=== PATIENT | female | born 1955 | race African-American/Black ===

== ENCOUNTER → 2017-05-29 | Outpatient (CLI) | payer OTHER ==
--- NOTE | 2017-05-29 11:54 | RAD ---
DATE: 05/29/2017 EXAM: DIGITAL SCREEN BILAT W/CAD HISTORY: Routine screening COMPARISON: 10/20/2015 This study was interpreted with the benefit of Computerized Aided Detection (CAD). The breast parenchyma is primarily fatty replaced. Breast parenchyma level density A. FINDINGS: There is an unchanged small nodule located just medial to the midline of the left breast. No new or enlarging breast densities are seen. Benign type calcifications are present. No suspicious microcalcifications have developed. IMPRESSION: Stable mammograms without evidence of malignancy. BI-RADS CATEGORY: 2 BENIGN FINDING(S) RECOMMENDED FOLLOW-UP: 12M 12 MONTH FOLLOW-UP PQRS compliance statement: Patient information was entered into a reminder system with a target due date for the next mammogram. Mammography is a sensitive method for finding small breast cancers, but it does not detect them all and is not a substitute for careful clinical examination. A negative mammogram does not negate a clinically suspicious finding and should not result in delay in biopsying a clinically suspicious abnormality. "Our facility is accredited by the [employer] Mammography Program."
== END | disposition home or self-care (01) ==
LOC: MAMMO 10:46
PROVIDERS: ATTEND Physician Assistant
DX: Z12.31 Encounter for screening mammogram for malignant neoplasm of breast (principal)
CPT/HCPCS: 77067

== ENCOUNTER → 2018-01-09 | Outpatient (CLI) | payer OTHER ==
[~2018-01-09] MED LIST: IOHEXOL 300 MG/ML 50 ML VIAL. IV ONE; IOHEXOL 300 MG/ML 75 ML VIAL. IV ONE
--- NOTE | 2018-01-09 11:42 | RAD ---
CT ANGIOGRAPHY CHEST Indication: SHORT OF BREATH, ELEVATED D-DIMER
75MLS OMNI 300 IV CONTRAST . Comparison: No comparison is available. Technique: After intravenous contrast administration, CT imaging was performed of the chest. MIP reconstructions were obtained. Exposure: One or more of the following individualized dose reduction techniques were utilized for this examination: 1. Automated exposure control 2. Adjustment of the mA and/or kV according to patient size 3. Use of iterative reconstruction technique. FINDINGS: Note there is limited detail due to artifact produced by body habitus. Pulmonary arteries:No evidence of pulmonary embolism. Thoracic aorta: No aneurysm or dissection is identified. Thyroid gland:Visualized aspect is unremarkable. Lymph nodes:No significant enlargement Heart: Mildly enlarged Esophagus: Unremarkable Pleural spaces: No significant effusion Lungs: Mild linear opacity in the lingula of the left lung, likely atelectasis. No dense airspace consolidation. Mild subpleural biapical opacities. No evidence of a discrete dominant mass. Trachea and central airways: Patent Bones: Degenerative thoracic spondylosis. Upper abdomen: Slices through the upper abdomen are limited due to the technique .No obvious acute findings. IMPRESSION: 1. No evidence of a pulmonary embolism. 2. There are irregular opacities identified in both lungs. This most likely due to atelectasis, or infectious/inflammatory etiology. Electronically signed by: Vishnu Escobar MD (01/09/2018 11:38 AM) [facility]
== END | disposition home or self-care (01) ==
LOC: CT 09:31
PROVIDERS: ATTEND Physician Assistant
DX: M47.894 Other spondylosis, thoracic region (principal); I51.7 Cardiomegaly; R91.8 Other nonspecific abnormal finding of lung field
CPT/HCPCS: 71275

== ENCOUNTER → 2018-05-07 | Outpatient (CLI) | payer OTHER ==
--- NOTE | 2018-05-07 15:09 | RAD ---
EXAM: Left knee, 2 views. HISTORY: Pain and swelling. COMPARISON: None. FINDINGS: 2 views left knee are obtained. There is medial compartment joint space narrowing with subchondral sclerosis. There is mild tricompartmental spurring. There is no joint effusion. There is slight enthesopathy along the superior patella. IMPRESSION: 1. Mild to moderate medial compartment and mild lateral and patellofemoral compartment osteoarthritis of the left knee. 2. No acute osseous finding. Electronically signed by: Maria Del Carmen Beverly MD (05/07/2018 3:06 PM) [facility]
--- NOTE | 2018-05-07 16:49 | RAD ---
Left lower extremity venous Doppler ultrasound History: LT KNEE PAIN AND SWELLING Comparison: None. Procedure: Color flow Doppler, Doppler spectral analysis, and 2D images are obtained with and without compression in the area of the common femoral vein, superficial femoral vein - femoral vein junction, main femoral vein (superficial femoral vein) and popliteal vein. Veins of the proximal calf are also imaged. Findings: There is normal color flow, augmentation, and compressibility of all visualized deep vein segments. No evidence of deep venous thrombus is present. Due to patient body habitus, calf veins are not well seen. IMPRESSION: No evidence of left lower extremity deep venous thrombosis. Electronically signed by: Fernando Rowe MD (05/07/2018 4:46 PM) [id number]
== END | disposition home or self-care (01) ==
LOC: RAD 14:36
PROVIDERS: ATTEND Physician Assistant
DX: M17.12 Unilateral primary osteoarthritis, left knee (principal); R22.42 Localized swelling, mass and lump, left lower limb
CPT/HCPCS: 73560; 73562; 93971

== ENCOUNTER → 2018-07-23 | Outpatient (CLI) | payer OTHER ==
--- NOTE | 2018-07-23 11:38 | RAD ---
Chest, 2 views, 07/23/2018: HISTORY: Shortness of breath, pleuritic pain The heart is at the upper limits of normal in size. There is mild tortuosity of the thoracic aorta. No pulmonary infiltrate is seen. There is no evidence of pleural fluid. There are mild scattered spurs in the spine. IMPRESSION: 1. Mild cardiomegaly. 2. No acute infiltrates. Electronically signed by: Maverick Grayson MD (07/23/2018 11:35 AM) [facility]
== END | disposition home or self-care (01) ==
LOC: RAD 10:56
PROVIDERS: ATTEND Physician Assistant
DX: I51.7 Cardiomegaly (principal); M46.04 Spinal enthesopathy, thoracic region
CPT/HCPCS: 71046

== ENCOUNTER → 2018-12-23 | Outpatient (CLI) | payer OTHER ==
--- NOTE | 2018-12-23 17:55 | RAD ---
CHEST PA LATERAL History: Chest congestion Comparison: July 23, 2018 Findings: 2 views of the chest are submitted. There is no infiltrate, pneumothorax, or effusion. Pericardial cardiac silhouette is stable, not considered significantly enlarged. There is mild tortuosity of the thoracic aorta. Impression: 1. There is no radiographic evidence of acute cardiopulmonary disease. Electronically signed by: Marc Gonzales MD (12/23/2018 5:52 PM) [facility]
== END | disposition home or self-care (01) ==
LOC: PMG 15:38
PROVIDERS: ATTEND Physician Assistant
DX: R09.89 Other specified symptoms and signs involving the circulatory and respiratory systems (principal)
CPT/HCPCS: 71046

== ENCOUNTER → 2019-08-20 | Outpatient (CLI) | payer MEDICAID ==
--- NOTE | 2019-08-20 13:59 | RAD ---
AP and Lateral Views of the Chest 08/20/2019 12:00 AM Indication: Reason: PERSISTENT COUGH / Spl. Instructions: / History: Comparison: Chest radiograph December 23, 2018 Findings: Anterior chest is not included on lateral view somewhat limiting study. No evidence of pneumothorax or significant effusion is identified. Heart size is top normal. Mild interstitial coarsening is seen but stable since comparison exam. No acute osseous changes are identified. IMPRESSION: 1. No evidence of acute cardiopulmonary process. 2. Persistent, mild diffuse interstitial coarsening Electronically signed by: Louis Singleton MD (08/20/2019 1:56 PM) [id number]
== END ==
LOC: DXRAD 11:52
PROVIDERS: ATTEND Physician Assistant
DX: R05 Cough (principal)
CPT/HCPCS: 71046

== ENCOUNTER 2020-01-14 20:21 | Emergency (ER) | payer MEDICAID ==
[~2020-01-14] VITALS: Ht 165.1 cm; Wt 156.9 kg
--- NOTE | 2020-01-14 20:23 | PHYS DOC ---
Past History Past Medical History: Anxiety, Arthritis, Diabetes, High Cholesterol, Hypertension, Other General Adult HPI: HPI: "...I ve started coughing... and a little short of breath... My has Covid... He came here Friday and you guys sending to [place] and he is on a BiPAP or something to help him breathe.... I feel like I have developed a cough and fever now to...." Patient is a 64 year old female who presents with above hx and complaints of fever, cough and dyspnea recently diagnosed with Covid and hospitalized at [facility] on Friday. Patient denies any travel outside [facility] area. Patient has history of chronic leg edema, hypertension, morbid obesity,arthritis and anemia.. The patient follows with [facility]. Review of Systems: Review of Systems: Constitutional: Subjective fever Eyes: Denies change in visual acuity HENT: Denies nasal congestion or sore throat Respiratory: Complains of a nonproductive cough, wheezing and shortness of breath Cardiovascular: History of chronic edema GI: Denies abdominal pain, nausea, vomiting, bloody stools or diarrhea : Denies dysuria Musculoskeletal: Denies back pain or joint pain Integument: Denies rash Neurologic: Denies headache, focal weakness or sensory changes Endocrine: Denies polyuria or polydipsia Lymphatic: Denies swollen glands Psychiatric: Denies depression. Complains of anxiety Family History: Family History: Has been recently diagnosed with Covid Current Medications: Current Meds: See nursing for home meds Allergies: Allergies: Allergies Coded Allergies Type Severity Reaction Last Updated Verified No Known Drug Allergies 01/09/18 No Physical Exam: PE: Constitutional: Moderate acute distress, non-toxic appearance. [] HENT: Normocephalic, atraumatic, bilateral external ears normal, oropharynx moist, no oral exudates, nose normal. Injected turbinates with clear rhinorrhea Eyes: PERRLA, EOMI, conjunctiva normal, no discharge. [] Neck: Normal range of motion, no tenderness, supple, no stridor. More than 17 inches circumference Cardiovascular: Tachycardia heart rate regular rhythm, no murmur [] Lungs & Thorax: Bilateral breath sounds equal apex with scattered wheezes, basilar crackles on auscultation [] The patient desats with activity Abdomen: Bowel sounds normal, soft, no tenderness, no masses, no pulsatile masses. Morbidly obese. Skin: Warm, dry, no erythema, no rash. [] Back: No tenderness, no CVA tenderness. [] Extremities: No tenderness, no cyanosis, no clubbing, ROM intact, chronic hard and woody edema to the level of mid edwards. Neurologic: Alert and oriented X 3, normal motor function, normal sensory function, no focal deficits noted. [] Psychologic: Affect anxious, judgement normal, mood normal. [] EKG: EKG: Interpretation EKG shows a sinus rhythm at 97 bpm. Slightly long QT interval at 374 ms. The QTc interval is 479 ms. No findings acute STEMI of contralateral changes. [] Radiology/Procedures: Radiology/Procedures: [[address] [address] IMAGING REPORT Signed PATIENT: ABDIRASHID BYRNE ACCOUNT: [id number] : 1955 LOCATION: ER AGE: 64 SEX: F EXAM STATUS: REG ER ORD. PHYSICIAN: JAVED WILLIS MD REASON: dyspnea PROCEDURE: CHEST PA & LATERAL EXAM: CT Pulmonary Angiogram INDICATION: Reason: OMNI 350,100ML IV.Dyspnea, ELEVATED D-DIMER / Spl. Instructions: / History: TECHNIQUE: Multi-detector row images were acquired from the thoracic inlet through the upper abdomen with the use of IV contrast. Sagittal and coronal images were acquired from the transaxial data. MIP images of the pulmonary arteries were obtained. All CT scans performed at this facility utilize dose optimization techniques as appropriate to the exam, including the following: Automated exposure control and adjustment of the mA and/or KV according to patient size (this includes techniques or standardized protocols for targeted exams where dose is indication/reason for exam). IV CONTRAST: Administered COMPARISON: None FINDINGS: Suboptimal contrast bolus timing. Images degraded by respiratory motion artifact. PULMONARY ARTERIES: No pulmonary emboli are identified. CARDIOVASCULAR: Unremarkable Aorta is normal caliber. MEDIASTINUM & PRASAD: No adenopathy or masses. LUNGS: Multifocal pulmonary ground glass opacities are present bilaterally. PLEURAL SPACE: No pleural effusions or pneumothorax. OSSEOUS & SOFT TISSUE: Unremarkable ABDOMEN: The visualized portions of the upper abdomen show previous cholecystectomy. IMPRESSION: 1. No evidence of pulmonary emboli although respiratory motion artifact and suboptimal contrast bolus timing degrades detail. 2. Multifocal pulmonary opacities in a pattern suggestive of atypical pneumonia. Electronically signed by: Chris Ellis MD (01/14/2020 11:03 PM) [facility] [place] SIGNED BY: CHRIS ELLIS MD DATE: 01/14/202302 CC: JAVED WILLIS MD; DINAH DELUNA PA ~ ][address] [address] IMAGING REPORT Signed PATIENT: ABDIRASHID BYRNE ACCOUNT: [id number] : 1955 LOCATION: ER AGE: 64 SEX: F EXAM STATUS: REG ER ORD. PHYSICIAN: JAVED WILLIS MD REASON: OMNI 350,100ML IV.Dyspnea, ELEVATED D-DIMER PROCEDURE: CT ANGIOGRAPHY CHEST EXAM: CT Pulmonary Angiogram INDICATION: Reason: OMNI 350,100ML IV.Dyspnea, ELEVATED D-DIMER / Spl. Instructions: / History: TECHNIQUE: Multi-detector row images were acquired from the thoracic inlet through the upper abdomen with the use of IV contrast. Sagittal and coronal images were acquired from the transaxial data. MIP images of the pulmonary arteries were obtained. All CT scans performed at this facility utilize dose optimization techniques as appropriate to the exam, including the following: Automated exposure control and adjustment of the mA and/or KV according to patient size (this includes techniques or standardized protocols for targeted exams where dose is indication/reason for exam). IV CONTRAST: Administered COMPARISON: None FINDINGS: Suboptimal contrast bolus timing. Images degraded by respiratory motion artifact. PULMONARY ARTERIES: No pulmonary emboli are identified. CARDIOVASCULAR: Unremarkable Aorta is normal caliber. MEDIASTINUM & PRASAD: No adenopathy or masses. LUNGS: Multifocal pulmonary ground glass opacities are present bilaterally. PLEURAL SPACE: No pleural effusions or pneumothorax. OSSEOUS & SOFT TISSUE: Unremarkable ABDOMEN: The visualized portions of the upper abdomen show previous cholecystectomy. IMPRESSION: 1. No evidence of pulmonary emboli although respiratory motion artifact and suboptimal contrast bolus timing degrades detail. 2. Multifocal pulmonary opacities in a pattern suggestive of atypical pneumonia. Electronically signed by: Chris Ellis MD (01/14/2020 11:03 PM) [facility] AND [facility]IGNED BY: CHRIS ELLIS MD DATE: 01/14/202302 CC: JAVED WILLIS MD; DINAH DELUNA ~ Heart Score: HEART Score for Chest Pain: HEART Score for Chest Pain Response (Comments) Value History Slighlty/Non-Suspicious 0 ECG Normal 0 Age >45 - < 65 1 Risk Factors 1 or 2 Risk Factors 1 Troponin < Normal Limit 0 Total 2 Risk Factors: Risk Factors: DM, Current or recent (<one month) smoker, HTN, HLP, family history of CAD, obesity. Risk Scores: Score 0 - 3: 2.5% MACE over next 6 weeks - Discharge Home Score 4 - 6: 20.3% MACE over next 6 weeks - Admit for Clinical Observation Score 7 - 10: 72.7% MACE over next 6 weeks - Early Invasive Strategies Course & Med Decision Making: Course & Med Decision Making Pertinent Labs and Imaging studies reviewed. (See chart for details) Discussed presentation, testing and treatment plan with - Advised that [facility] had inadequate staff tomorrow. . Dr. Fernandez Requested pt to be transfered to [facility], Advised there are no COVID beds at [facility] Pt. accepted at - Impression: 1. Dyspnea 2. Cough 3. Viral Syndrome- Suspect COVID 4. Elevated AST 55, ALT 67 5. Elevated D-dimer 1.08 6. Hypoxia 7. [] Dragon Disclaimer: Dragon Disclaimer: This electronic medical record was generated, in whole or in part, using a voice recognition dictation system. Departure Departure: Referrals: DINAH DELUNA (PCP) Scripts Azithromycin (ZITHROMAX) 250 Mg Tablet 250 MG PO DAILY for ANTI-BIOTIC for 5 Days, #5 TAB 0 Refills Prov: JAVED WILLIS MD 01/14/20 Apixaban (ELIQUIS) 2.5 Mg Tablet 2.5 MG PO BID for COVID for 14 Days, #28 TAB Prov: JAVED WILLIS MD 01/14/20 Dragon Disclaimer This chart was dictated in whole or in part using Voice Recognition software in a busy, high-work load, and often noisy Emergency Department environment. It may contain unintended and wholly unrecognized errors or omissions. Dragon Disclaimer This chart was dictated in whole or in part using Voice Recognition software in a busy, high-work load, and often noisy Emergency Department environment. It may contain unintended and wholly unrecognized errors or omissions. JAVED WILLIS MD Jan 14, 2020 20:23
[2020-01-14] MEDS ORDERED: IV RINGERS SOLUTION,LACTATED 1,000 ML IV SCH (20:25)
[2020-01-14] MEDS ORDERED: ALBUTEROL SULFATE 8GM INHALER. INH ONE (20:30)
[2020-01-14 21:24] LABS: BASO % 0 % (0-3); EOS % 0 % (0-3); HEMATOCRIT 36.2 % (36.0-47.0); HEMOGLOBIN 11.5 g/dL (12.0-15.5); LYMPH # 1.9 x10^3/uL (1.0-4.8); LYMPH % 34 % (24-48); MEAN CORPUSCULAR HEMOGLOBIN 29 pg (25-35); MEAN CORPUSCULAR HGB CONC 32 g/dL (31-37); MEAN CORPUSCULAR VOLUME 90 fL (79-100); MONO # 0.6 x10^3/uL (0.0-1.1); MONO % 10 % (0-9); NEUT # 3.2 x10^3uL (1.8-7.7); NEUT % 56 % (31-73); PLATELET COUNT 327 x10^3/uL (140-400); RED BLOOD COUNT 4.01 x10^6/uL (3.50-5.40); RED CELL DISTRIBUTION WIDTH 15.8 % (11.5-14.5); WHITE BLOOD COUNT 5.7 x10^3/uL (4.0-11.0)
[2020-01-14 21:25] LABS: CALCIUM 8.4 mg/dL (8.5-10.1); CREATININE 0.7 mg/dL (0.6-1.0); GFR 101.9; POTASSIUM 4.3 mmol/L (3.5-5.1)
[2020-01-14 21:34] LABS: INFLUENZA A PATIENT NEGATIVE (NEGATIVE); INFLUENZA B PATIENT NEGATIVE (NEGATIVE)
[2020-01-14 21:37] LABS: ALBUMIN 3.1 g/dL (3.4-5.0); DIRECT BILIRUBIN 0.4 mg/dL (0.0-0.2); MAGNESIUM 2.1 mg/dL (1.8-2.4); TOTAL BILIRUBIN 0.6 mg/dL (0.2-1.0); TOTAL PROTEIN 7.6 g/dL (6.4-8.2)
[2020-01-14] MEDS ORDERED: IOHEXOL 350 MG/ML 100 ML VIAL. IV ONE (21:45)
[2020-01-14] MEDS ORDERED: APIXABAN 2.5 MG TABLET PO SCH (22:00)
[2020-01-14] MEDS ORDERED: AZIT250T PO (22:11)
[2020-01-14] MEDS ORDERED: APIX2.5T PO (22:11)
[2020-01-14] MEDS ORDERED: AZITHROMYCIN 250 MG TABLET. PO ONE (22:15)
--- NOTE | 2020-01-14 23:06 | RAD ---
EXAM: CT Pulmonary Angiogram INDICATION: Reason: OMNI 350,100ML IV.Dyspnea, ELEVATED D-DIMER / Spl. Instructions: / History: TECHNIQUE: Multi-detector row images were acquired from the thoracic inlet through the upper abdomen with the use of IV contrast. Sagittal and coronal images were acquired from the transaxial data. MIP images of the pulmonary arteries were obtained. All CT scans performed at this facility utilize dose optimization techniques as appropriate to the exam, including the following: Automated exposure control and adjustment of the mA and/or KV according to patient size (this includes techniques or standardized protocols for targeted exams where dose is indication/reason for exam). IV CONTRAST: Administered COMPARISON: None FINDINGS: Suboptimal contrast bolus timing. Images degraded by respiratory motion artifact. PULMONARY ARTERIES: No pulmonary emboli are identified. CARDIOVASCULAR: Unremarkable Aorta is normal caliber. MEDIASTINUM & PRASAD: No adenopathy or masses. LUNGS: Multifocal pulmonary ground glass opacities are present bilaterally. PLEURAL SPACE: No pleural effusions or pneumothorax. OSSEOUS & SOFT TISSUE: Unremarkable ABDOMEN: The visualized portions of the upper abdomen show previous cholecystectomy. IMPRESSION: 1. No evidence of pulmonary emboli although respiratory motion artifact and suboptimal contrast bolus timing degrades detail. 2. Multifocal pulmonary opacities in a pattern suggestive of atypical pneumonia. Electronically signed by: Jose Ellis MD (01/14/2020 11:03 PM) [facility] [place]
--- NOTE | 2020-01-15 00:21 | EKG ---
[address] [address] Test Date: 2020-01-14 Test Time: 21:58:20 Pat Name: ABDIRASHID BYRNE Department: Room: Gender: F Huc Ob: : 1955 Requested By: JAVED WILLIS Order Number: [id number] Reading MD: Measurements Intervals [place] Rate: 97 P: 39 WI: 140 QRS: 36 QRSD: 84 T: 28 QT: 374 QTc: 479 Interpretive Statements SINUS RHYTHM PROLONGED QT NO SPECIFIC ECG ABNORMALITIES RI6.02 No previous ECG available for comparison
[2020-01-15 03:53] VITALS: BP 136/75
== END 2020-01-15 04:02 | disposition short-term general hospital (02) ==
LOC: ER 20:21
DX: B34.9 Viral infection, unspecified (principal); R79.89 Other specified abnormal findings of blood chemistry; R79.1 Abnormal coagulation profile; R09.02 Hypoxemia; F41.9 Anxiety disorder, unspecified; M19.90 Unspecified osteoarthritis, unspecified site; E11.9 Type 2 diabetes mellitus without complications; E78.00 Pure hypercholesterolemia, unspecified; I10 Essential (primary) hypertension
CPT/HCPCS: 36415; 71046; 71275; 80048; 80076; 82550; 83605; 83690; 83735; 83880; 84443; 84484; 85025; 85379; 85610; 85730; 86140; 87040; 87070; 87804; 87880; 93005; 94640; 96360; 96361; 99285; J0456; J7120; J7613; Q9967; 94664

== ENCOUNTER 2020-05-26 10:34 | Emergency (ER) | payer MEDICAID ==
[~2020-05-26] VITALS: Ht 165.1 cm; Wt 149.3 kg
[~2020-05-26 10:34] MED LIST changes: +APIX2.5T PO; +AZIT250T PO; -IOHEXOL 300 MG/ML 50 ML VIAL. IV ONE; -IOHEXOL 300 MG/ML 75 ML VIAL. IV ONE
--- NOTE | 2020-05-26 10:50 | PHYS DOC ---
Past History Past Medical History: Anxiety, Arthritis, Diabetes, High Cholesterol, Hypertension, Other Alcohol Use: None Adult General Chief Complaint Chief Complaint: SHORTNESS OF BREATH HPI HPI Patient is a 64-year-old female who presents via EMS for shortness of breath. Reports shortness of breath started while on phone with family member. Reports being on the phone for several minutes and was told of negative family news which upset her prompting her to have increased wheezing and shortness of breath. Patient has known history of COPD and anxiety and has meds for both, did not utilize any of these and instead called EMS as family member who is on the phone advised her to do so. Patient denies any significant cardiac history, no recent fever, sick contacts, recent travel, hemoptysis, history of blood clots, syncope or worsen lower extremity edema Review of Systems Review of Systems Fourteen body systems of review of systems have been reviewed. See HPI for pertinent positives and negative responses, other pettit all other systems are negative, non-pertinent or non-contributory Allergies Allergies Allergies Coded Allergies Type Severity Reaction Last Updated Verified No Known Drug Allergies 01/09/18 No Physical Exam Physical Exam Constitutional: Well developed, well nourished, no acute distress, non-toxic appearance. HENT: Normocephalic, atraumatic, bilateral external ears normal, oropharynx moist, no oral exudates, nose normal. Eyes: PERRLA, EOMI, conjunctiva normal, no discharge. Neck: Normal range of motion, no tenderness, supple, no stridor. Cardiovascular: Heart rate regular, sinus rhythm, no murmurs rubs or gallops Lungs & Thorax: Bilateral breath sounds clear to auscultation Abdomen: Bowel sounds normal, soft protuberant, no tenderness, no masses, no pulsatile masses. Nonsurgical abdomen, no peritoneal signs Skin: Warm, dry, no erythema, no rash. Back: No tenderness, no CVA tenderness. Extremities: No tenderness, no cyanosis, no clubbing, ROM intact, no edema. Neurologic: Alert and oriented X 3, grossly normal motor & sensory function, no focal deficits noted. Psychologic: Anxious mood and affect Current Patient Data Vital Signs Vital Signs Date Time Temp Pulse Resp B/P (MAP) Pulse Ox O2 Delivery O2 Flow Rate FiO2 05/26/20 12:02 84 20 164/81 (108) 97 Room Air 05/26/20 11:43 95 Room Air 05/26/20 11:26 80 20 161/94 (116) 95 05/26/20 10:35 97.8 89 20 147/75 (99) 97 Room Air Lab Results Laboratory Tests Test 05/26/20 11:11 White Blood Count 7.8 x10^3/uL Red Blood Count 3.87 x10^6/uL Hemoglobin 11.2 g/dL Hematocrit 35.2 % Mean Corpuscular Volume 91 fL Mean Corpuscular Hemoglobin 29 pg Mean Corpuscular Hemoglobin Concent 32 g/dL Red Cell Distribution Width 15.6 % Platelet Count 573 x10^3/uL Neutrophils (%) (Auto) 64 % Lymphocytes (%) (Auto) 27 % Monocytes (%) (Auto) 6 % Eosinophils (%) (Auto) 1 % Basophils (%) (Auto) 1 % Neutrophils # (Auto) 5.0 x10^3uL Lymphocytes # (Auto) 2.1 x10^3/uL Monocytes # (Auto) 0.5 x10^3/uL Eosinophils # (Auto) 0.1 x10^3/uL Basophils # (Auto) 0.1 x10^3/uL Sodium Level 141 mmol/L Potassium Level 3.9 mmol/L Chloride Level 105 mmol/L Carbon Dioxide Level 28 mmol/L Anion Gap 8 Blood Urea Nitrogen 13 mg/dL Creatinine 0.8 mg/dL Estimated GFR (Cockcroft-Gault) 87.4 Glucose Level 119 mg/dL Calcium Level 9.2 mg/dL Troponin I Quantitative < 0.017 ng/mL Current Medications Medications (Trade) Dose Ordered Sig/Bre Route PRN Reason Start Time Stop Time Status Last Admin Dose Admin Aspirin (Aspirin Chewable) 162 mg 1X ONCE PO 05/26/20 11:00 05/26/20 11:01 DC 05/26/20 10:53 Aspirin (Aspirin Chewable) 81 mg STK-MED ONCE .ROUTE 05/26/20 10:52 05/26/20 10:52 DC Albuterol/ Ipratropium (Duoneb) 3 ml 1X ONCE NEB 05/26/20 11:15 05/26/20 11:16 DC 05/26/20 11:15 EKG EKG EKG ordered and interpreted by myself at 1049 hrs. as sinus rhythm at 79 bpm, QTC prolonged at 487 otherwise unremarkable intervals, no axis deviation, no acute ischemic findings, no STEMI Radiology/Procedures Radiology/Procedures PROCEDURE: PORTABLE CHEST 1V EXAM: XR CHEST 1V INDICATION: Reason: SHORTNESS OF BREATH / Spl. Instructions: / History: . TECHNIQUE: Single view COMPARISON: Chest x-ray 01/14/2020 FINDINGS: The heart size is normal. The great vessels appear unremarkable. There is no hilar or mediastinal mass. Low lung volumes redemonstrated with interval improvement in bilateral airspace opacities. Residual central pulmonary vascular congestion. There is no pleural effusion or pneumothorax. There are no significant osseous abnormalities. IMPRESSION: Pulmonary vascular congestion and low lung volumes. Electronically signed by: Jose Ellis MD (05/26/2020 11:25 AM) [id number] Heart Score C/O Chest Pain: No HEART Score for Chest Pain: HEART Score for Chest Pain Response (Comments) Value History Slighlty/Non-Suspicious 0 ECG Normal 0 Age >45 - < 65 1 Risk Factors 1 or 2 Risk Factors 1 Troponin < Normal Limit 0 Total 2 Risk Factors: Risk Factors: DM, Current or recent (<one month) smoker, HTN, HLP, family history of CAD, obesity. Risk Scores: Risk Factors: DM, Current or recent (<one month) smoker, HTN, HLP, family history of CAD, obesity. Course & Med Decision Making Course & Med Decision Making Hemodynamically stable patient with history consistent with anxiety/panic attack. Physical exam grossly nonconcerning Patient responded to ER administered DuoNeb. Comprehensive ER work-up obtained and grossly nonconcerning. Patient reexamined several times throughout ER visit and at baseline health with no symptoms Discussed most likely diagnosis of anxiety attack. Patient admits she has been under increased stress recently. Also admits she has not been utilizing her inhalers for COPD as usual, there is no indication for steroid and/or antibiotic use for exacerbation at present given symptoms I discussed need for close PCP follow-up in outpatient setting. Patient educated extensively on measures to reduce her stress and anxiety, plan of care was established as patient identifies current living situation as main source of stress, she plans to move out Strict return precautions were discussed with good understanding by patient, all questions and concerns addressed prior to ER departure in good condition Dragon Disclaimer Dragon Disclaimer This electronic medical record was generated, in whole or in part, using a voice recognition dictation system. Departure Departure: Impression: Primary Impression: Anxiety attack Disposition: 01 DC HOME SELF CARE/HOMELESS Condition: GOOD Referrals: DINAH DELUNA (PCP) Patient Instructions: Anxiety and Panic Attacks, Shortness of Breath Additional Instructions: You were seen for shortness of breath which was likely due to an anxiety/panic attack. With that said, you have numerous pulmonary diagnoses such as COPD so it is important that you continue your current regimen for symptom control and if prescribed any medications during your ED visit today, take them as prescribed until completion or your primary doctor changes your medications. It will be important that you follow up with your primary doctor/fresh work inspector after this ED visit. Return to the ED if you develop worsening cough, shortness of breath, fever > 101, chest pain, or any other new or concerning symptoms. ANITRA SCHAFER DO May 26, 2020 10:50
[2020-05-26] MEDS ORDERED: ASPIRIN CHEWABLE 81 MG TABLET. ONE (10:52)
[2020-05-26] MEDS: ASPIRIN CHEWABLE 81 MG TABLET. PO ONE (10:53)
--- NOTE | 2020-05-26 11:09 | EKG ---
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
[2020-05-26] MEDS: IPRATRPIUM/ALBUTEROL 0.5/2.5MG 3 ML NEBU. NEB ONE (11:15)
--- NOTE | 2020-05-26 11:27 | RAD ---
EXAM: XR CHEST 1V INDICATION: Reason: SHORTNESS OF BREATH / Spl. Instructions: / History: . TECHNIQUE: Single view COMPARISON: Chest x-ray 01/14/2020 FINDINGS: The heart size is normal. The great vessels appear unremarkable. There is no hilar or mediastinal mass. Low lung volumes redemonstrated with interval improvement in bilateral airspace opacities. Residual c entral pulmonary vascular congestion. There is no pleural effusion or pneumothorax. There are no significant osseous abnormalities. IMPRESSION: Pulmonary vascular congestion and low lung volumes. Electronically signed by: Jose Ellis MD (05/26/2020 11:25 AM) [id number]
[2020-05-26 11:36] LABS: BASO # 0.1 x10^3/uL (0.0-0.2); BASO % 1 % (0-3); EOS # 0.1 x10^3/uL (0.0-0.7); EOS % 1 % (0-3); HEMATOCRIT 35.2 % (36.0-47.0); HEMOGLOBIN 11.2 g/dL (12.0-15.5); LYMPH # 2.1 x10^3/uL (1.0-4.8); LYMPH % 27 % (24-48); MEAN CORPUSCULAR HEMOGLOBIN 29 pg (25-35); MEAN CORPUSCULAR HGB CONC 32 g/dL (31-37); MEAN CORPUSCULAR VOLUME 91 fL (79-100); MONO # 0.5 x10^3/uL (0.0-1.1); MONO % 6 % (0-9); NEUT % 64 % (31-73); PLATELET COUNT 573 x10^3/uL (140-400); RED BLOOD COUNT 3.87 x10^6/uL (3.50-5.40); RED CELL DISTRIBUTION WIDTH 15.6 % (11.5-14.5); WHITE BLOOD COUNT 7.8 x10^3/uL (4.0-11.0)
[2020-05-26 11:41] LABS: CALCIUM 9.2 mg/dL (8.5-10.1); CREATININE 0.8 mg/dL (0.6-1.0); GFR 87.4; POTASSIUM 3.9 mmol/L (3.5-5.1)
[2020-05-26 12:02] VITALS: BP 164/81
== END 2020-05-26 12:05 | disposition home or self-care (01) ==
LOC: ER 10:34
DX: F41.9 Anxiety disorder, unspecified (principal); M19.90 Unspecified osteoarthritis, unspecified site; E11.9 Type 2 diabetes mellitus without complications; E78.00 Pure hypercholesterolemia, unspecified; I10 Essential (primary) hypertension
CPT/HCPCS: 36415; 71045; 80048; 84484; 85025; 93005; 94640; 99285

== ENCOUNTER → 2020-06-20 | Outpatient (CLI) | payer MEDICAID ==
[2020-05-26 12:02] VITALS: BP 164/81
--- NOTE | 2020-06-22 18:31 | RAD ---
DATE: 06/20/2020 EXAM: DIGITAL SCREEN BILAT W/CAD HISTORY: Screening COMPARISON: 05/29/2017, 10/20/2015, 10/12/2014, 01/28/2011 This study was interpreted with the benefit of Computerized Aided Detection (CAD). Breast Density: SCATTERED The breast parenchyma shows scattered fibroglandular densities. Breast parenchyma level B. FINDINGS: No mass, suspicious calcification, or architectural distortion in either breast. IMPRESSION: No evidence of malignancy. BI-RADS CATEGORY: 1 NEGATIVE RECOMMENDED FOLLOW-UP: 12M 12 MONTH FOLLOW-UP PQRS compliance statement: Patient information was entered into a reminder system with a target due date for the next mammogram. Mammography is a sensitive method for finding small breast cancers, but it does not detect them all and is not a substitute for careful clinical examination. A negative mammogram does not negate a clinically suspicious finding and should not result in delay in biopsying a clinically suspicious abnormality. "Our facility is accredited by the [employer] Mammography Program."
== END ==
LOC: MAMMO 10:40
PROVIDERS: ATTEND Physician Assistant
DX: Z12.31 Encounter for screening mammogram for malignant neoplasm of breast (principal)
CPT/HCPCS: 77067